=== PATIENT | female | born 1940 | race Two or more races ===

== ENCOUNTER 2018-01-09 10:58 | Emergency (ER) | payer MEDICARE, OTHER ==
[~2018-01-09] VITALS: Ht 160 cm; Wt 69.4 kg
[2018-01-09] MEDS ORDERED: KETOROLAC TROMETHAMINE 15 MG/ML VIAL ONE (11:12)
--- NOTE | 2018-01-09 11:29 | NUR ---
PT BIB PARAMEDICS FROM HOME FOR LOWER BSACK PAIN. SON AT BEDSIDE STATES THAT MOTHER WAS UNABLE TO STAND UP CRAWLING ON FLOOR. 2 MONTHS AGO PT HAD BACK PAIN MRI DONE NEGATIVE RESULTS. PT GABONESE SPEAKING ALERT AND ORIETED. PIV PLACED MEDICATION AND LABS DONE.
[2018-01-09] MEDS ORDERED: KETOROLAC TROMETHAMINE INJ 30 MG/ML VIAL IV ONE (11:30)
[2018-01-09 11:32] LABS: BASOPHILS # (AUTO) 0.1 /CMM (0.0-0.2); BASOPHILS % (AUTO) 1.6 % (0.0-2.0); EOSINOPHILS % (AUTO) 0.2 % (0.0-6.0); HEMATOCRIT 36 % (33-45); HEMOGLOBIN 12.4 g/dL (11.5-14.8); LYMPHOCYTES # (AUTO) 0.6 /CMM (0.8-4.8); LYMPHOCYTES % (AUTO) 6.9 % (20.0-44.0); MEAN CORPUSCULAR HGB CONC 34 g/dl (31.0-36.0); MEAN CORPUSCULAR VOLUME 91 fL (82-100); MONOCYTES # (AUTO) 0.5 /CMM (0.1-1.30); MONOCYTES % (AUTO) 5.5 % (2.0-12.0); NEUTROPHILS # (AUTO) 7.7 /CMM (1.8-8.9); NEUTROPHILS % (AUTO) 85.8 % (43.0-81.0); PLATELET COUNT (AUTO) 310 /CMM (150-450); RDW COEFFICIENT OF VARIATION 12.1 (11.5-15.0); WHITE BLOOD COUNT (AUTO) 8.9 K/uL (4.3-11.0)
--- NOTE | 2018-01-09 11:34 | NUR ---
PT TAKEN TO CT SCAN
[2018-01-09 11:35] LABS: CALCIUM, SERUM 9.2 mg/dL (8.5-10.1); CARBON DIOXIDE 25 mmol/L (21-32); CHLORIDE 103 mmol/L (98-107); CREATININE 0.9 mg/dL (0.6-1.3); GLUCOSE 303 mg/dL (74-106); SODIUM SERUM 138 mmol/L (136-145); UREA NITROGEN, BLOOD 15 mg/dL (7-18)
[2018-01-09 11:40] LABS: ALANINE AMINOTRANSFERASE 15 U/L (12-78); ALBUMIN 3.3 g/dL (3.4-5.0); ALKALINE PHOSPHATASE 73 U/L (46-116); ASPARTATE AMINOTRANSFERASE 14 U/L (15-37); BILIRUBIN,TOTAL 0.4 mg/dL (0.2-1.0); LIPASE 185 U/L (73-393); TOTAL PROTEIN, SERUM 7.3 g/dL (6.4-8.2)
[2018-01-09 11:42] LABS: TROPONIN I < 0.017 ng/mL (0.00-0.056)
[2018-01-09 12:54] LABS: APPEARANCE,URINE Clear (CLEAR); BILIRUBIN,URINE Negative (NEGATIVE); BLOOD, URINE Moderate Ery/uL (NEGATIVE); COLOR,URINE Yellow (YELLOW); KETONES,URINE 15 (NEGATIVE); LEUKOCYTE ESTERASE ,URINE Negative (NEGATIVE); NITRITE, URINE Negative (NEGATIVE); PH,URINE 5.5 (5.0-8.0); PROTEIN,URINE Negative (NEGATIVE); UGLUCOSE 500 MG/DL mg/dL (NEGATIVE); UROBILINOGEN,URINE 0.2 EU/dL (0.2)
[2018-01-09 12:56] LABS: BACTERIA,URINE Few /HPF (None Seen); SQUAMOUS EPITHELIAL CELL,UR Few /HPF (None Seen)
--- NOTE | 2018-01-09 12:58 | NUR ---
PT OFFERED MORPHINE FOR BACK PAIN REFUSED MD WYNNE AWARE
[2018-01-09 13:30] VITALS: BP 147/90
--- NOTE | 2018-01-09 13:31 | NUR ---
PT WALKED TO BATH ROOM AND THEN TO LOBBY WITH STAEDY GAIT DISCHARGED TO SON WITH ACI AND PRESCRIPTION
== END 2018-01-09 13:32 | disposition home or self-care (01) ==
LOC: ER 11:00
DX: S39.012A Strain of muscle, fascia and tendon of lower back, initial encounter (principal); M47.9 Spondylosis, unspecified; I10 Essential (primary) hypertension; E11.9 Type 2 diabetes mellitus without complications; X58.XXXA Exposure to other specified factors, initial encounter; Y93.B9 Activity, other involving muscle strengthening exercises; Y92.89 Other specified places as the place of occurrence of the external cause; Y99.8 Other external cause status
CPT/HCPCS: 36415; 72110; 80048; 80076; 81001; 83690; 84484; 85025; 96374; 99285; A4606; J1885; 81000-TC; Z7610

== ENCOUNTER 2021-07-28 16:27 | Emergency (ER) | payer MEDICARE, OTHER ==
[~2021-07-28] VITALS: Ht 142.2 cm; Wt 49.0 kg
--- NOTE | 2021-07-28 16:43 | NUR ---
TO ER BED 4. BIB SON C/O L ARM PAIN S/P TRIPPED AND FELL YESTERDAY. PT HAS BRUISING ON HER CHIN AND L ARM. VITALS ARE WITHIN PT BASELINE. NO RESP NOTED.
[2021-07-28 18:35] VITALS: BP 103/57
--- NOTE | 2021-07-28 18:35 | NUR ---
Patient discharged to home in stable condition. Written and verbal after care instructions given. Patient verbalizes understanding of instruction.
== END 2021-07-28 18:36 | disposition home or self-care (01) ==
LOC: ER 16:45
DX: S52.502A Unspecified fracture of the lower end of left radius, initial encounter for closed fracture (principal); I10 Essential (primary) hypertension; E11.9 Type 2 diabetes mellitus without complications; W01.0XXA Fall on same level from slipping, tripping and stumbling without subsequent striking against object, initial encounter; Y93.89 Activity, other specified; Y92.89 Other specified places as the place of occurrence of the external cause; Y99.8 Other external cause status
CPT/HCPCS: 73110

== ENCOUNTER 2021-10-20 15:13 | Inpatient (IN) | payer MEDICARE, OTHER ==
[~2021-10-20] VITALS: Ht 152.4 cm; Wt 45.8 kg
--- NOTE | 2021-10-20 15:25 | NUR ---
To ER bed 1, [id number] from home, GLF this morning. bruising to face and r shoulder from a previous fall. family concern about frequent falls. bg 138 bell captain. aaox2, breathing even and non labored, connected to monitor, awaiting md orders
[2021-10-20] MEDS ORDERED: TELM20TA2 PO (17:54)
[2021-10-20] MEDS ORDERED: MEMA10TA56 PO (17:54)
[2021-10-20] MEDS ORDERED: SIMV-46 PO (17:54)
[2021-10-20] MEDS ORDERED: METF-440 PO (17:54)
[2021-10-20] MEDS ORDERED: MELO-105 PO (17:54)
[2021-10-20] MEDS ORDERED: GLIM2TAB31 PO (17:54)
[2021-10-20] MEDS ORDERED: MAGN400T26 PO (17:54)
[2021-10-20] MEDS ORDERED: ASPI-1420 PO (17:54)
[2021-10-20] MEDS ORDERED: CARV3.122 PO (17:54)
[2021-10-20] MEDS ORDERED: ERGO500093 PO (17:54)
--- NOTE | 2021-10-20 17:54 | NUR ---
SALINE LOCK ESTABLISHED, BLOOD DRAWN AND SENT TO LAB
--- NOTE | 2021-10-20 17:54 | NUR ---
COVID SWAB DONE AND SENT TO LAB
[2021-10-20 19:28] LABS: CALCIUM, SERUM 9.2 mg/dL (8.5-10.1); CREATININE 0.7 mg/dL (0.6-1.3)
--- NOTE | 2021-10-20 19:30 | NUR ---
RECEIVED REPORT FROM JACQUI HART. PT IS 80YO FEMALE SUSTAINED A GLF, PT IS AAOX2, ALBANIAN SPEAKING. WITH BRUISES ON THE FACE AND RIGHT SHOULDER FROM PREVIOUS FALLS. PATIENT HAS IV CANNULA ON LEFT AC G20. SON IS AT BEDSIDE TO INTERPRET. -SOB, -CP. DIAPER CHANGED. VITALS CHECKED AND BEING MONITORED.
--- NOTE | 2021-10-20 19:30 | NUR ---
RECEIVED REPORT FROM JACQUI HART. PT IS 80YO FEMALE SUSTAINED A GLF, PT IS AAOX2, GUINEAN SPEAKING. WITH BRUISES ON THE FACE AND RIGHT SHOULDER FROM PREVIOUS FALLS. PATIENT HAS IV CANNULA ON LEFT AC G20. SON IS AT BEDSIDE TO INTERPRET. -SOB, -CP. DIAPER CHANGED. VITALS CHECKED AND BEING MONITORED.
--- NOTE | 2021-10-20 19:39 | NUR ---
CALLED ANABELA PAGED DELANO DE LA CRUZ NP
[2021-10-20 19:45] LABS: ALBUMIN 3.1 g/dL (3.4-5.0); BILIRUBIN,TOTAL 0.3 mg/dL (0.2-1.0); TOTAL PROTEIN, SERUM 7.1 g/dL (6.4-8.2)
[2021-10-20 20:23] LABS: BASOPHILS # (AUTO) 0.2 K/uL (0.0-0.2); EOSINOPHILS % (AUTO) 1.2 % (0.0-6.0); HEMATOCRIT 34 % (33-45); HEMOGLOBIN 12.1 g/dL (11.5-14.8); LYMPHOCYTES % (AUTO) 23.8 % (20.0-44.0); MEAN CORPUSCULAR HGB CONC 36 g/dl (31.0-36.0); MEAN CORPUSCULAR VOLUME 95 fL (82-100); MONOCYTES # (AUTO) 0.4 K/uL (0.1-1.30); NEUTROPHILS # (AUTO) 2.6 K/uL (1.8-8.9); NEUTROPHILS % (AUTO) 59.7 % (43.0-81.0); PLATELET COUNT (AUTO) 294 K/uL (150-450); RED BLOOD CELL COUNT(AUTO) 3.56 MIL/uL (4.0-5.2); WHITE BLOOD COUNT (AUTO) 4.4 K/uL (4.3-11.0)
[2021-10-20 20:31] LABS: BASOPHILS % (AUTO) 5.3 % (0.0-2.0)
--- NOTE | 2021-10-20 20:51 | NUR ---
REPORT GIVEN TO JACQUI MYERS. SON IS AWARE ABOUT RM 306-2. SON: MIREILLE CP # [phone]
[2021-10-20 21:16] LABS: BASOPHILS % (MANUAL) 3 % (0.0-2.0); LYMPHOCYTES % (MANUAL) 22 % (16-48); MONOCYTES % (MANUAL) 7 % (0-11.0); NEUTROPHILS % (MANUAL) 68 (42-76)
--- NOTE | 2021-10-20 21:44 | NUR ---
PT IS BEING TRANSFERRED TO 306-2
[2021-10-20 21:50] VITALS: BP 111/65
--- NOTE | 2021-10-20 21:50 | NUR ---
line builder notes Received Pt from JACQUI Santana. Pt is alert and orientedX2-3. Pt speaks Guinean and able to make needs known. On room air. No SOB. no S/S of distress noted. VS is stable. Afebrile. IV site at LAC# 20 is clean, intact, and flushes easily. Skin assessment is done and performed. Noted R forehead and R forearm bruises. Pt denies any pain at this time. Pictures are taken and placed at Pt's chart. Wound care consult ordered. Pt's belongings was checked by LOLITA Caputo. [place] Pt to the room and the use of call light. Pt verbalized understanding. Safety precautions is maintained. Bed at low position, brakes locked, side rails upX3, bed alarm is on, hob elevated and call light is within reach. Will continue to monitor.
[2021-10-20 22:00] VITALS: BP 115/65
[2021-10-20] MEDS ORDERED: MAG HYDROX/AL HYDROX/SIMETH 30 ML UDC PO PRN (22:30)
[2021-10-20] MEDS ORDERED: MAGNESIUM HYDROXIDE 30 ML UDC PO PRN (22:30)
[2021-10-20] MEDS ORDERED: ACETAMINOPHEN 325 MG TABLET PO PRN (22:30)
[2021-10-20] MEDS ORDERED: Z GUARD REMEDY 4 OZ OINT TP PRN (22:30)
[2021-10-20] MEDS ORDERED: ZOLPIDEM TARTRATE 5 MG TABLET PO PRN (22:30)
[2021-10-20] MEDS ORDERED: ONDANSETRON HCL/PF 4 MG/2 ML VIAL IVP PRN (22:30)
[2021-10-20] MEDS: IV NS 0.9% 1,000 ML IV PRN (22:52)
--- NOTE | 2021-10-20 23:57 | NUR ---
RN notes Informed and notified Dr. Salazar that Pt's has history of diabetes. MD ordered accucheck moderate sliding scale. Ordered carry out.
--- NOTE | 2021-10-20 23:58 | NUR ---
RN notes Pt's blood sugar is 86. No S/s of distress noted. Snacks is provided with juices. No S/S of distress noted. Assist Pt eating the snacks at the bedside without any difficulties. Pt verbalize understanding. Will continue to monitor.
[2021-10-21] MEDS ORDERED: *INSULIN REGULAR(HUMULIN R)HUM 100 UNIT/ML VIAL SQ PRN
[2021-10-21] MEDS ORDERED: DEXTROSE 50%-WATER 50 ML DISP.SYRIN IV PRN
[2021-10-21 06:01] LABS: BASOPHILS % (AUTO) 0.6 % (0.0-2.0); EOSINOPHILS % (AUTO) 1.6 % (0.0-6.0); HEMATOCRIT 29 % (33-45); HEMOGLOBIN 10.6 g/dL (11.5-14.8); LYMPHOCYTES # (AUTO) 1.2 K/uL (0.8-4.8); LYMPHOCYTES % (AUTO) 32.4 % (20.0-44.0); MEAN CORPUSCULAR HGB CONC 36 g/dl (31.0-36.0); MEAN CORPUSCULAR VOLUME 98 fL (82-100); MONOCYTES # (AUTO) 0.4 K/uL (0.1-1.30); MONOCYTES % (AUTO) 11.7 % (2.0-12.0); NEUTROPHILS % (AUTO) 53.7 % (43.0-81.0); PLATELET COUNT (AUTO) 270 K/uL (150-450); RED BLOOD CELL COUNT(AUTO) 2.99 MIL/uL (4.0-5.2); WHITE BLOOD COUNT (AUTO) 3.8 K/uL (4.3-11.0)
[2021-10-21 06:31] LABS: CALCIUM, SERUM 8.7 mg/dL (8.5-10.1); CARBON DIOXIDE 24 mmol/L (21-32); CHLORIDE 105 mmol/L (98-107); CREATININE 0.6 mg/dL (0.6-1.3); GLUCOSE 103 mg/dL (74-106); PHOSPHORUS 4.5 mg/dL (2.5-4.9); POTASSIUM 3.7 mmol/L (3.5-5.1); SODIUM SERUM 140 mmol/L (136-145); UREA NITROGEN, BLOOD 13 mg/dL (7-18)
--- NOTE | 2021-10-21 06:40 | NUR ---
RN closing notes Pt is resting in bed comfortably. Pt is alert and orientedX2-3. On room air. No SOB. No S/S of distress noted. VS is stable. IV site at R hand# 20 is clean, intact and infusing well NS@ 75 ml/hr. LAc# 20 is clean, intact and SL. kept Pt clean, dry and comfortable. Safety precautions is maintianed. Bed at low position, brakes locked, side rails upX3, hob elevated, bed alarm is on and call light is within reach. Will endorse to am nurse for FERNANDA.
[2021-10-21] MEDS: INSULIN REGULAR, HUMAN 100 UNIT/ML 3 ML VIAL SQ PRN ×2 (07:00→12:35)
[2021-10-21] MEDS: BLOOD SUGAR DIAGNOSTIC 1 EACH STRIP VI SCH ×4 (07:00→21:38)
--- NOTE | 2021-10-21 07:00 | NUR ---
MS RN OPENING NOTES PATIENT LAYING IN BED, A/O X 2-3, TOLERATING WELL ON ROOM AIR WITH NO S/S RESPIRATORY DISTRESS. NO COMPLAINTS OF PAIN OR DISCOMFORT AT THIS TIME. R HAND # 20 G IV CLEAN, INTACT, AND INFUSING NS @ 75 ML/HR. SAFETY MEASURES IN PLACE: BED IN LOWEST LOCKED POSITION, SIDE RAILS UP X 2, CALL LIGHT WITHIN REACH. WILL CONTINUE TO MONITOR.
[2021-10-21 08:00] VITALS: BP 120/67
[2021-10-21] MEDS: GLIMEPIRIDE 1 MG TABLET PO SCH ×3 (08:00→17:47)
[2021-10-21] MEDS: ASPIRIN EC 81 MG TABLET.DR PO SCH (08:58)
[2021-10-21] MEDS: MEMANTINE HCL 5 MG TABLET PO SCH (08:58)
[2021-10-21] MEDS: MELOXICAM 7.5 MG TABLET PO SCH ×2 (08:58→21:38)
[2021-10-21] MEDS: MAGNESIUM OXIDE 400 MG TABLET PO SCH (08:58)
[2021-10-21] MEDS: METFORMIN 500 MG TABLET PO SCH (08:58)
[2021-10-21] MEDS: CARVEDILOL 3.125 MG TABLET PO SCH ×2 (08:59→21:38)
[2021-10-21] MEDS: LOSARTAN POTASSIUM 25 MG TABLET PO SCH (08:59)
[2021-10-21 16:00] VITALS: BP 122/75
[2021-10-21] MEDS: ENSURE ENLIVE 237 ML LIQUID (VANILLA) PO SCH (17:16)
[2021-10-21] MEDS: ENOXAPARIN SODIUM 40 MG/0.4 ML DISP.SYRIN SQ SCH (17:31)
--- NOTE | 2021-10-21 19:00 | NUR ---
MS RN CLOSING NOTES PATIENT LAYING IN BED, A/O X 2-3, TOLERATING WELL ON ROOM AIR WITH NO S/S RESPIRATORY DISTRESS. NO COMPLAINTS OF PAIN OR DISCOMFORT AT THIS TIME. R HAND # 20 G IV CLEAN, INTACT, FLUSHING WELL. L FOREARM # 20 G IV CLEAN, INTACT, AND INFUSING NS @ 75 ML/HR. SAFETY MEASURES IN PLACE: BED IN LOWEST LOCKED POSITION, SIDE RAILS UP X 2, CALL LIGHT WITHIN REACH. ALL NEEDS MET. WILL ENDORSE TO CARTON GLUING MACHINE OPERATOR FOR FERNANDA.
--- NOTE | 2021-10-21 19:35 | NUR ---
MS RN NOTES NOTED PT HAD BOTH IV SITES PULLED OUT CLEANED AREA EXTABLISHED NEW IV ACCESS ON THE RAC 22G TOLERATED WELL FLUSHING WELL.
[2021-10-21 20:00] VITALS: BP 136/74
[2021-10-21] MEDS: SIMVASTATIN 20 MG TABLET PO SCH (21:38)
[2021-10-22] MEDS: INSULIN REGULAR, HUMAN 100 UNIT/ML 3 ML VIAL SQ PRN (06:55)
[2021-10-22] MEDS: BLOOD SUGAR DIAGNOSTIC 1 EACH STRIP VI SCH ×4 (06:55→21:14)
--- NOTE | 2021-10-22 07:00 | NUR ---
MS RN CLOSING NOTES PATIENT LAYING IN BED, A/O X 3, TOLERATING WELL ON ROOM AIR WITH NO S/S RESPIRATORY DISTRESS. NO COMPLAINTS OF PAIN OR DISCOMFORT AT THIS TIME. RAC 22G S/L INTACT, FLUSHING WELL. SAFETY MEASURES IN PLACE: BED IN LOWEST LOCKED POSITION, SIDE RAILS UP X 2, CALL LIGHT WITHIN REACH. ALL NEEDS MET. WILL ENDORSE CARE TO DAY SHIFT NURSE.
--- NOTE | 2021-10-22 07:00 | NUR ---
MS RN OPENING NOTES PATIENT LAYING IN BED, A/O X 3, TOLERATING WELL ON ROOM AIR WITH NO S/S RESPIRATORY DISTRESS. NO COMPLAINTS OF PAIN OR DISCOMFORT AT THIS TIME. R AC # 22 G SL CLEAN, INTACT, FLUSHING WELL. SAFETY MEASURES IN PLACE: BED IN LOWEST LOCKED POSITION, SIDE RAILS UP X 2, CALL LIGHT WITHIN REACH. WILL CONTINUE TO MONITOR.
[2021-10-22] MEDS: GLIMEPIRIDE 1 MG TABLET PO SCH ×3 (08:00→17:12)
[2021-10-22] MEDS: ENSURE ENLIVE 237 ML LIQUID (VANILLA) PO SCH ×2 (08:14→16:24)
[2021-10-22] MEDS: ASPIRIN EC 81 MG TABLET.DR PO SCH ×2 (08:20→09:00)
[2021-10-22] MEDS: LOSARTAN POTASSIUM 25 MG TABLET PO SCH ×2 (08:20→09:00)
[2021-10-22] MEDS: MAGNESIUM OXIDE 400 MG TABLET PO SCH ×2 (08:21→09:00)
[2021-10-22] MEDS: MELOXICAM 7.5 MG TABLET PO SCH ×3 (08:21→21:03)
[2021-10-22] MEDS: CARVEDILOL 3.125 MG TABLET PO SCH ×3 (08:21→21:03)
[2021-10-22] MEDS: METFORMIN 500 MG TABLET PO SCH ×2 (08:21→09:00)
[2021-10-22] MEDS: MEMANTINE HCL 5 MG TABLET PO SCH ×2 (08:21→09:00)
[2021-10-22 08:32] VITALS: BP 134/68
--- NOTE | 2021-10-22 11:02 | NUR ---
MS RN NOTES PATIENT HAD REFUSED ALL MORNING MEDICATIONS AND PULLED OUT IV LINE. I SPOKE WITH PATIENT'S SON MIREILLE WHO INTERPRETED FOR ME AND STATED PATIENT BELIEVED SHE DID NOT NEED HER MEDICATIONS BECAUSE SHE THOUGHT SHE WAS BEING DISCHARGED FROM THE HOSPITAL SOON. SON EXPLAINED TO THE PATIENT THAT SHE WAS NOT LEAVING IMMEDIATELY AND SHE SHOULD CONTINUE TO TAKE HER MEDICATIONS. PATIENT AGREED TO TAKE HER MEDICATIONS GOING FORWARD.
--- NOTE | 2021-10-22 12:00 | NUR ---
MS RN NOTES 22 G IV INSERTED IN RIGHT FOREARM, CURRENTLY INFUSING NS @ 75 ML/HR, PATIENT CALM AND TOLERATING WELL.
[2021-10-22 16:05] VITALS: BP 126/66
[2021-10-22] MEDS: ENOXAPARIN SODIUM 40 MG/0.4 ML DISP.SYRIN SQ SCH (16:21)
--- NOTE | 2021-10-22 18:47 | NUR ---
MS RN CLOSING NOTES PATIENT LAYING IN BED, A/O X 3, TOLERATING WELL ON ROOM AIR WITH NO S/S RESPIRATORY DISTRESS. NO COMPLAINTS OF PAIN OR DISCOMFORT AT THIS TIME. LEFT FOREARM # 22 G IV CLEAN AND INTACT WITH NS INFUSING @ 75 ML/HR. SAFETY MEASURES IN PLACE: BED IN LOWEST LOCKED POSITION, SIDE RAILS UP X 2, CALL LIGHT WITHIN REACH. ALL NEEDS MET. WILL ENDORSE TO LABORATORY TECHNOLOGY TEACHER FOR FERNANDA.
--- NOTE | 2021-10-22 19:47 | NUR ---
MS RN OPENING NOTE RECEIVED PATIENT AWAKE IN BED. A/O X 3 AND ABLE TO MAKE NEEDS KNOWN. MALIAN SPEAKING. STABLE ON ROOM AIR. NO SOB OR S/S OF RESPIRATORY DISTRESS. BREATHING EVEN AND UNLABORED. NO COMPLAINTS OF PAIN OR DISCOMFORT AT THIS TIME. IV ACCESS LFA 22G, INTACT AND PATENT, RUNNING NS @ 75 ML/HR. SAFETY PRECAUTIONS IN PLACE. BED IN LOWEST LOCKED POSITION, SIDE RAILS UP X 2, HOB ELEVATED, AND CALL LIGHT AND TABLE WITHIN REACH. ALL NEEDS MET AT THIS TIME.
[2021-10-22 20:00] VITALS: BP 134/82
[2021-10-22] MEDS: SIMVASTATIN 20 MG TABLET PO SCH (21:03)
[2021-10-22] MEDS: IV NS 0.9% 1,000 ML IV PRN (22:50)
[2021-10-23] MEDS: BLOOD SUGAR DIAGNOSTIC 1 EACH STRIP VI SCH ×2 (06:32→11:33)
--- NOTE | 2021-10-23 06:56 | NUR ---
MS RN CLOSING NOTE PATIENT AWAKE IN BED. A/O X 3 AND ABLE TO MAKE NEEDS KNOWN. CYMRO SPEAKING. STABLE ON ROOM AIR. NO SOB OR S/S OF RESPIRATORY DISTRESS. BREATHING EVEN AND UNLABORED. NO COMPLAINTS OF PAIN OR DISCOMFORT AT THIS TIME. IV ACCESS LFA 22G, INTACT AND PATENT, RUNNING NS @ 75 ML/HR. ALL DUE MEDS GIVEN ORDERED. SAFETY PRECAUTIONS IN PLACE AT ALL TIMES. BED IN LOWEST LOCKED POSITION, SIDE RAILS UP X 2, HOB ELEVATED, AND CALL LIGHT AND TABLE WITHIN REACH. ALL NEEDS MET AT THIS TIME AND WILL ENDORSE TO ONCOMING SHIFT FOR FERNANDA.
--- NOTE | 2021-10-23 07:20 | NUR ---
RN OPENING NOTES RECEIVED PATIENT IN BED, AWAKE, A/O X 3, ON ROOM AIR WITH NO S/S RESPIRATORY DISTRESS NOTED. DENIES ANY PAIN OR DISCOMFORT AT THIS TIME. NOTED WITH IV ACCESS ON LEFT FORE ARM # 22 G, SL. FLUSHING WELL. SAFETY MEASURES IN PLACE: BED IN LOWEST LOCKED POSITION, BED ALARM ON, SIDE RAILS UP X 2, CALL LIGHT WITHIN REACH. WILL CONTINUE TO MONITOR PATIENT.
[2021-10-23] MEDS: ASPIRIN EC 81 MG TABLET.DR PO SCH (08:22)
[2021-10-23] MEDS: MAGNESIUM OXIDE 400 MG TABLET PO SCH (08:22)
[2021-10-23] MEDS: GLIMEPIRIDE 1 MG TABLET PO SCH (08:22)
[2021-10-23] MEDS: CARVEDILOL 3.125 MG TABLET PO SCH (08:22)
[2021-10-23] MEDS: MELOXICAM 7.5 MG TABLET PO SCH (08:22)
[2021-10-23] MEDS: MEMANTINE HCL 5 MG TABLET PO SCH (08:22)
[2021-10-23] MEDS: LOSARTAN POTASSIUM 25 MG TABLET PO SCH (08:22)
[2021-10-23] MEDS: METFORMIN 500 MG TABLET PO SCH (08:22)
[2021-10-23] MEDS: ENSURE ENLIVE 237 ML LIQUID (VANILLA) PO SCH (08:23)
[2021-10-23] MEDS ORDERED: EMPA25TA PO (08:27)
[2021-10-23] MEDS ORDERED: ATOR20TA PO (08:30)
[2021-10-23 08:41] VITALS: BP 116/42
--- NOTE | 2021-10-23 15:25 | NUR ---
CHARGEBACK SPECIALIST NOTE PATIENT DISCHARGED TO [facility] IN STABLE CONDITION. PATIENT IS ALERT AND ORIENTED X3, PERUVIAN SPEAKING, UNDERSTAND VERY LITTLE [place]. IV ACCESS ON LFA REMOVED, NO BLEEDING NOTED, PRESSURE DRESSING APPLIED TO SITE. ALL BELONGINGS ACCOUNTED FOR, FORM SIGNED BY KRISTEL KENDRICK AT BEDSIDE. REPORT GIVEN TO JACQUI WHITAKER FROM [facility] @1400. EXITCARE FOLDER GIVEN TO AMBULANCE. PATIENT LEFT UNIT @3134. CN AWARE OF DISCHARGE.
[2021-10-25] MEDS ORDERED: ERGOCALCIFEROL (VITAMIN D 2) 50,000 UNIT CAPSULE PO SCH (09:00)
== END 2021-10-23 15:30 | DRG 914 ==
LOC: ER 15:24 → MED 20:47
PROVIDERS: ADMIT Nurse Practitioner Acute Care; ATTEND Internal Medicine
DX: S09.90XA Unspecified injury of head, initial encounter (principal); Y92.009 Unspecified place in unspecified non-institutional (private) residence as the place of occurrence of the external cause; W18.39XA Other fall on same level, initial encounter; Z91.81 History of falling; R29.6 Repeated falls; R26.89 Other abnormalities of gait and mobility; I10 Essential (primary) hypertension; E78.5 Hyperlipidemia, unspecified; M19.90 Unspecified osteoarthritis, unspecified site; E11.9 Type 2 diabetes mellitus without complications; M81.0 Age-related osteoporosis without current pathological fracture; F03.90 Unspecified dementia, unspecified severity, without behavioral disturbance, psychotic disturbance, mood disturbance, and anxiety; Z20.822 Contact with and (suspected) exposure to COVID-19
CPT/HCPCS: 36415; 70450-TC; 72170-TC; 72220-TC; 80048-TC; 80053-TC; 82550-TC; 82962-TC; 83735-TC; 84100-TC; 85025-TC; 97116-TC; 97530-TC; C9803; G0378; J1650; J1815; J7030